=== PATIENT | female | born 1995 | race African-American/Black ===

== ENCOUNTER 2017-09-08 06:40 | Emergency (ER) | payer OTHER ==
[~2017-09-08] VITALS: Ht 154.9 cm; Wt 62.1 kg
--- OUTSIDE RECORDS SUMMARY | 2017-09-08 06:43 | XMS REPORT ---
Author Author [facility] Address Unknown Phone Unavailable Care Team Providers Care Behavioral Health Specialist Name Role Phone ROSLYN VALERA Unavailable Unavailable Problems This patient has no known problems. Allergies, Adverse Reactions, Alerts This patient has no known allergies or adverse reactions. Medications This patient has no known medications. Results Test Description Test Time Test Comments Text Results Atomic Results Result Comments URINALYSIS W/ MICROSCOPIC 2017-05-03 08:51:00 COLOR (BEAKER) (test fyvk=459) Yellow CLARITY (BEAKER) (test ludr=954) Slightly Cloudy SPECIFIC GRAVITY UA (BEAKER) (test jciv=500) 1.020 1.001-1.035 PH UA (BEAKER) (test dhsz=004) 8.5 5.0-8.0 PROTEIN UA (BEAKER) (test uuoz=120) 100 mg/dL Negative GLUCOSE UA (BEAKER) (test mrrf=897) Negative Negative KETONES UA (BEAKER) (test auoh=932) 15 mg/dL Negative BILIRUBIN UA (BEAKER) (test tatm=264) Negative Negative BLOOD UA (BEAKER) (test jkij=916) Negative Negative NITRITE UA (BEAKER) (test wmmd=625) Negative Negative LEUKOCYTE ESTERASE UA (BEAKER) (test sgjj=277) Trace Negative UROBILINOGEN UA (BEAKER) (test cyoz=192) 1.0 mg/dL 0.2-1.0 BACTERIA (BEAKER) (test bdxn=886) Many RBC UA-MANUAL (BEAKER) (test rurj=6221) <5 /HPF WBC UA-MANUAL (BEAKER) (test otew=5457) 5-10 /HPF SQUAMOUS EPITHELIAL MANUAL (BEAKER) (test utnx=3028) 10-20 /HPF CLUE CELLS PRESENT. SOURCE(BEAKER) (test uzix=8053) SCREEN, [id number] 08:39:00* Test Item Value Reference Range Comments TEST URINE (BEAKER) (test qwjy=783) Positive COMPREHENSIVE METABOLIC [id number] 08:03:00* Test Item Value Reference Range Comments TOTAL PROTEIN (BEAKER) (test xyks=059) 8.2 gm/dL 6.0-8.5 ALBUMIN (BEAKER) (test jvyr=8207) 4.5 g/dL 3.5-5.0 ALKALINE PHOSPHATASE (BEAKER) (test lwih=479) 73 U/L 30-115 BILIRUBIN TOTAL (BEAKER) (test hwik=994) 0.5 mg/dL 0.1-1.2 SODIUM (BEAKER) (test epmh=409) 139 meq/L 135-148 POTASSIUM (BEAKER) (test kqwc=147) 3.5 meq/L 3.6-5.5 CHLORIDE (BEAKER) (test aqsx=776) 107 meq/L 98-106 CO2 (BEAKER) (test sxdd=391) 21 meq/L 24-32 BLOOD UREA NITROGEN (BEAKER) (test ftjy=735) 12 mg/dL 10-26 CREATININE (BEAKER) (test lapj=430) 0.76 mg/dL 0.50-1.20 GLUCOSE RANDOM (BEAKER) (test lvlt=298) 116 mg/dL 70-110 CALCIUM (BEAKER) (test qgwn=844) 9.7 mg/dL 8.5-10.5 AST (SGOT) (BEAKER) (test ypqo=380) 13 U/L 5-40 ALT (SGPT) (BEAKER) (test albi=004) 17 U/L 5-50 EGFR (BEAKER) (test ebsl=3124) 116 mL/min/1.73 sq m ESTIMATED GFR IS NOT ACCURATE CREATININE CLEARANCE IN PREDICTING GLOMERULAR FILTRATION RATE. ESTIMATED GFR IS NOT APPLICABLE FOR DIALYSIS PATIENTS. [id number] 08:03:00* Test Item Value Reference Range Comments AMYLASE (BEAKER) (test aqwm=822) 96 U/L 30-110 [id number] 08:03:00* Test Item Value Reference Range Comments LIPASE (BEAKER) (test spqc=805) 125 U/L 40-240 CBC W/PLT COUNT & AUTO [id number] 07:49:00* Test Item Value Reference Range Comments WHITE BLOOD CELL COUNT (BEAKER) (test abuu=144) 6.7 10e3/ L 4.0-10.0 RED BLOOD CELL COUNT (BEAKER) (test meic=515) 4.84 10e6/ L 4.00-5.00 HEMOGLOBIN (BEAKER) (test iiry=118) 13.2 g/dL 12.0-15.0 HEMATOCRIT (BEAKER) (test kgsj=085) 40.7 % 36.0-45.0 MEAN CORPUSCULAR VOLUME (BEAKER) (test hbgc=613) 84.0 fL 82.0-99.0 MEAN CORPUSCULAR HEMOGLOBIN (BEAKER) (test yogh=438) 27.3 pg 27.0-33.0 MEAN CORPUSCULAR HEMOGLOBIN CONC (BEAKER) (test gipi=210) 32.5 g/dL 32.0- 36.0 RED CELL DISTRIBUTION WIDTH (BEAKER) (test ewpp=838) 15.1 % 10.3-14.2 PLATELET COUNT (BEAKER) (test emef=394) 263 10e3/ L 150-430 MEAN PLATELET VOLUME (BEAKER) (test fvck=595) 9.1 fL 6.5-10.5 NEUTROPHILS RELATIVE PERCENT (BEAKER) (test dzwt=615) 70 % LYMPHOCYTES RELATIVE PERCENT (BEAKER) (test yrjq=110) 24 % MONOCYTES RELATIVE PERCENT (BEAKER) (test elaf=705) 5 % EOSINOPHILS RELATIVE PERCENT (BEAKER) (test outo=834) 1 % BASOPHILS RELATIVE PERCENT (BEAKER) (test lbyd=054) 1 % NEUTROPHILS ABSOLUTE COUNT (BEAKER) (test vlfx=164) 4.65 10e3/ L 1.80-8.00 LYMPHOCYTES ABSOLUTE COUNT (BEAKER) (test krje=458) 1.61 10e3/ L 1.48-4.50 MONOCYTES ABSOLUTE COUNT (BEAKER) (test qqjg=571) 0.32 10e3/ L 0.00-1.30 EOSINOPHILS ABSOLUTE COUNT (BEAKER) (test rqlc=551) 0.05 10e3/ L 0.00-0.50 BASOPHILS ABSOLUTE COUNT (BEAKER) (test ircr=437) 0.03 10e3/ L 0.00-0.20
--- OUTSIDE RECORDS SUMMARY | 2017-09-08 06:43 | XMS REPORT | Clinical Summary ---
Author Author [facility] Address Unknown Phone Unavailable Care Team Providers Care Debrander Name Role Phone PCP Unavailable Allergies No Known Allergies Current Medications Prescription Sig. Disp. Refills Start End Date Status Date 21-iron fu-folic Take 1 tablet by mouth 30 tablet 0 05/03/19 Active acid ( COMPLETE) daily. 18 14 mg iron- 400 mcg Tab nitrofurantoin, Take 1 capsule (100 mg 10 capsule 0 05/03/19 macrocrystal-monohydrate, total) by mouth 2 (two) 18 18 (MACROBID) 100 MG capsule times daily for 7 days. ondansetron (ZOFRAN-ODT) Take 1 tablet (4 mg 20 tablet 0 05/03/19 4 MG disintegrating total) by mouth every 8 18 18 tablet (eight) hours as needed for Nausea for up to 7 days. promethazine (PHENERGAN) Take 1 tablet (25 mg 30 tablet 0 05/03/19 05/10/19 25 MG tablet total) by mouth every 6 18 18 (six) hours as needed for Nausea for up to 7 days. Active Problems Not on file Encounters Date Type Specialty Care Team Description 05/03/2017 Emergency Emergency Medicine Neil Chavez, Less than 8 weeks MD gestation of (Primary Dx);Dehydration;Non-intra ctable vomiting with nausea, unspecified vomiting type;Bacteriuria after 09/07/2016 Social History Tobacco Use Types Packs/Day Years Used Date Never Smoker Smokeless Tobacco: Never Used Tobacco Cessation: Counseling Given: No Alcohol Use Drinks/Week oz/Week Comments No Sex Assigned at Date Recorded Not on file Last Filed Vital Signs Vital Sign Reading Time Taken Blood Pressure 118/64 05/03/2017 8:33 AM SENIOR RESERVATIONS AGENT Pulse 62 05/03/2017 8:33 AM SENIOR RESERVATIONS AGENT Temperature 36.4 C (97.5 F) 05/03/2017 7:15 AM SENIOR RESERVATIONS AGENT Respiratory Rate 18 05/03/2017 8:33 AM SENIOR RESERVATIONS AGENT Oxygen Saturation 99% 05/03/2017 8:33 AM SENIOR RESERVATIONS AGENT Inhaled Oxygen - - Concentration Weight 59.4 kg (131 lb) 05/03/2017 7:15 AM SENIOR RESERVATIONS AGENT Height - - Body Mass Index - - Plan of Treatment Not on file Results * CBC with platelet count + automated diff (05/03/2017 7:42 AM) Component Value Ref Range WBC 6.7 4.0 - 10.0 10e3/ L RBC 4.84 4.00 - 5.00 10e6/ L Hemoglobin 13.2 12.0 - 15.0 g/dL Hematocrit 40.7 36.0 - 45.0 % MCV 84.0 82.0 - 99.0 fL MCH 27.3 27.0 - 33.0 pg MCHC 32.5 32.0 - 36.0 g/dL RDW 15.1 (H) 10.3 - 14.2 % Platelets 263 150 - 430 10e3/ L MPV 9.1 6.5 - 10.5 fL % Neutros 70 % % Lymphs 24 % % Monos 5 % % Eos 1 % % Baso 1 % # Neutros 4.65 1.80 - 8.00 10e3/ L # Lymphs 1.61 1.48 - 4.50 10e3/ L # Monos 0.32 0.00 - 1.30 10e3/ L # Eos 0.05 0.00 - 0.50 10e3/ L # Baso 0.03 0.00 - 0.20 10e3/ L Specimen Performing Laboratory Blood [facility] [address] [place] [address] * screen, urine (05/03/2017 7:42 AM) Component Value Ref Range Preg Test, Ur Positive Specimen Performing Laboratory Urine - Urine, Clean [facility] [address] [place] [address] * Urinalysis w/Microscopic (05/03/2017 7:42 AM) Component Value Ref Range Color, UA Yellow Clarity, UA Slightly Cloudy Specific [place], UA 1.020 1.001 - 1.035 pH, UA 8.5 (H) 5.0 - 8.0 Protein, UA 100 mg/dL (A) Negative Glucose, UA Negative Negative Ketones, UA 15 mg/dL (A) Negative Bilirubin, UA Negative Negative Blood, UA Negative Negative Nitrite, UA Negative Negative Leukocytes, UA Trace (A) Negative Urobilinogen, UA 1.0 0.2 - 1.0 mg/dL Bacteria, UA Many RBC, UA <5 /HPF WBC, UA 5-10 /HPF SQUAMOUS EPITHELIAL 10-20Comment: CLUE CELLS PRESENT. /HPF Specimen Source Specimen Performing Laboratory Urine - Urine, Clean [facility], [facility], [facility] [address] [place] [phone] * CBC with platelet count + automated diff (05/03/2017 7:42 AM) Specimen Performing Laboratory Blood Narrative The following orders were created for panel order CBC with platelet count + automated diff. Procedure Abnormality Status --------- - ------ CBC with platelet count ...[[id number]]AbnormalFinal result Please view results for these tests on the individual orders. * Lipase (05/03/2017 7:42 AM) Component Value Ref Range Lipase 125 40 - 240 U/L Specimen Performing Laboratory [facility], [facility] [place] , [facility] [address] [place] [id number] * Amylase (05/03/2017 7:42 AM) Component Value Ref Range Amylase 96 30 - 110 U/L Specimen Performing Laboratory [facility], [facility] [place] , [facility] [address] [place] [phone] * Comprehensive metabolic panel (05/03/2017 7:42 AM) Component Value Ref Range Protein, Total 8.2 6.0 - 8.5 gm/dL Albumin 4.5 3.5 - 5.0 g/dL Alkaline Phosphatase 73 30 - 115 U/L Total Bilirubin 0.5 0.1 - 1.2 mg/dL Sodium 139 135 - 148 meq/L Potassium 3.5 (L) 3.6 - 5.5 meq/L Chloride 107 (H) 98 - 106 meq/L CO2 21 (L) 24 - 32 meq/L BUN 12 10 - 26 mg/dL Creatinine 0.76 0.50 - 1.20 mg/dL Glucose 116 (H) 70 - 110 mg/dL Calcium 9.7 8.5 - 10.5 mg/dL AST 13 5 - 40 U/L ALT 17 5 - 50 U/L EGFR 116Comment: ESTIMATED GFR IS NOT ACCURATE mL/min/1.73 sq m CREATININE CLEARANCE IN PREDICTING GLOMERULAR FILTRATION RATE. ESTIMATED GFR IS NOT APPLICABLE FOR DIALYSIS PATIENTS. Specimen Performing Laboratory Blood [facility], [facility] [id number] [place] [phone] after 09/07/2016
[2017-09-08 06:56] LABS: BASOPHILS % 0.3 % (0.0-1.0); EOSINOPHILS % 0.3 % (0.0-6.0); HEMATOCRIT 31.6 % (34.2-44.1); HEMOGLOBIN 11.1 g/dL (12.0-16.0); LYMPHOCYTES # (AUTO) 1.9 (1.0-3.2); LYMPHOCYTES % 23.7 % (18.0-39.1); MEAN CORPUSCULAR HEMOGLOBIN 27.3 pg (28-32); MEAN CORPUSCULAR HGB CONC 35.1 g/dL (31-35); MEAN CORPUSCULAR VOLUME 77.8 fL (81-99); MONOCYTES # (AUTO) 0.7 (0.2-0.8); MONOCYTES % 8.2 % (4.4-11.3); NEUTROPHILS # (AUTO) 5.3 (2.1-6.9); NEUTROPHILS % 67.1 % (38.7-80.0); PLATELET COUNT 276 x10e3/uL (140-360); RED BLOOD COUNT 4.06 x10e6/uL (3.6-5.1); RED CELL DISTRIBUTION WIDTH 12.7 % (11.7-14.4)
[2017-09-08 07:11] LABS: ALANINE AMINOTRANSFERASE 13 IU/L (0-55); ALBUMIN 3.1 g/dL (3.5-5.0); ALBUMIN/GLOBULIN RATIO 0.8 (0.8-2.0); ALKALINE PHOSPHATASE 75 IU/L (40-150); ANION GAP 15.4 mmol/L (8-16); BLOOD UREA NITROGEN 7 mg/dL (7-26); BUN/CREATININE RATIO 10 (6-25); CALCIUM 8.6 mg/dL (8.4-10.2); CARBON DIOXIDE 21 mmol/L (22-29); CHLORIDE 104 mmol/L (98-107); CREATININE, SERUM 0.68 mg/dL (0.57-1.11); EST GLOMERULAR FILTRATION RATE > 60 ML/MIN (60-); GLUCOSE 87 mg/dL (74-118); POTASSIUM 3.4 mmol/L (3.5-5.1); SODIUM 137 mmol/L (136-145)
[2017-09-08 08:30] LABS: CLARITY,URINE SL CLOUDY (CLEAR); COLOR,URINE YELLOW (YELLOW); KETONES,URINE 3+ (NEGATIVE); LEUKOCYTE ESTERASE ,URINE NEGATIVE (NEGATIVE); NITRITE,URINE NEGATIVE (NEGATIVE); PROTEIN,URINE DIPSTICK TRACE (NEGATIVE); URINE UROBILINOGEN 1 mg/dL (0.2 - 1)
[2017-09-08 08:32] LABS: BILIRUBIN,URINE 1+ (NEGATIVE)
[2017-09-08 08:41] LABS: BACTERIA,URINE FEW /HPF; EPITHELIAL CELLS,URINE MODERATE /LPF; RBC,URINE 0-5 /HPF (0-5)
== END 2017-09-08 09:50 | disposition other institution (70) ==
LOC: ER 06:40
DX: O26.93 Pregnancy related conditions, unspecified, third trimester (principal); O09.33 Supervision of pregnancy with insufficient antenatal care, third trimester; R10.2 Pelvic and perineal pain
CPT/HCPCS: 36415; 80053; 81001; 85025; 99284